=== PATIENT | male | born 1935 | race Caucasian/White ===

== ENCOUNTER 2023-09-12 13:34 | Emergency (ER) | payer OTHER, SELFPAY ==
[2023-09-12 13:38] VITALS: BP 160/83; PULSE 86; RESP 18; TEMP 36.5; O2SAT 97; BMI 21.0
[2023-09-12] MEDS: KETOROLAC TROMETHAMINE 30 MG/ML VIAL 15 MG IM (14:54)
[2023-09-12 15:00] VITALS: BP 140/80; PULSE 64; RESP 16; O2SAT 95
--- NOTE | 2023-09-12 15:11 | ED_ITS ---
HPI - General Adult General Chief complaint: Extremity Injury, Upper Stated complaint: UPPER EXTREMITY PAIN/ SWELLING Time Seen by Provider: 09/12/23 14:43 Source: patient Mode of arrival: walk-in Limitations: no limitations History of Present Illness HPI narrative: Is coming to the ER with a right elbow and wrist pain that started after he had a preceding left big toe pain as well as the left knee pain that resolved, the patient mentioned that over the last few days it he has been having those joint pain that goes away by themselves but today had some more swelling in the right wrist and right elbow and he came over for evaluation. The patient mentioned that he had no fall or trauma. Related Data Previous Rx's Medication Instructions Recorded acetaminophen 650 mg 650 mg PO Q8H PRN pain #20 tabs 09/12/23 tablet,extended release (Tylenol Arthritis Pain) prednisone 20 mg tablet 40 mg (2 x 20 mg) PO DAILY 4 days 09/12/23 #8 tabs Allergies Allergy/AdvReac Type Severity Reaction Status Date / Time No Known Drug Allergies Allergy Verified 09/12/23 13:38 Review of Systems ROS Status of ROS 10 or more systems reviewed and unremark able except as noted in history and below Exam Narrative Exam Narrative: Nurses notes and vital signs reviewed and patient is not hypoxic. General: Well-appearing and in no apparent distress. Skin: Warm, dry, no pallor noted. No rash. Head: Normocephalic, atraumatic. Neck: Supple, non-tender. Eye: Pupils are equal, round and EOMI. No scleral icterus. Ears, Nose, Mouth, and Throat: TM are clear, no nasal mucosal hypertrophy. Oral mucosa is moist, no posterior oropharynx erythema, uvula is mid-line Cardiovascular: Regular Rate and Rhythm without murmur, gallop or rub. Respiratory: No accessory muscle use or respiratory distress. Lungs are clear to auscultation, no wheezing, rales or rhonchi Chest Wall: no tenderness Back: No midline thoracic or lumbar vertebral tenderness. No CVA tenderness Musculoskeletal: The patient have mild swelling of the right wrist as well as hand no hotness, the patient also have a no edema of the left elbow or the left knee as well as the left foot. Mild effusion of the right wrist. Limited movement of the right elbow due to pain no redness no hotness no signs of infection. No vascular injury detected GI: Abdomen is soft, non-distended. Normal bowel sounds. No masses appreciated. No tenderness to palpation. No rebound, guarding, or rigidity noted. Neurological: A&O x4. No cranial nerve dysfunction observed. No truncal ataxia. Moves all extremities. Sensation intact. Psychiatric: Cooperative and interactive. Normal mood and affect. Constitutional Vital Signs, click to edit/add: Last Vital Signs Temp 97.7 F 09/12/23 13:38 Pulse 86 09/12/23 13:38 Resp 18 09/12/23 13:38 BP 160/83 H 09/12/23 13:38 Pulse Ox 97 09/12/23 13:38 O2 Del Method Room Air 09/12/23 13:38 Course Vital Signs Vital signs: Vital Signs Temperature 97.7 F 09/12/23 13:38 Pulse Rate 86 09/12/23 13:38 Respiratory Rate 18 09/12/23 13:38 Blood Pressure 160/83 H 09/12/23 13:38 Pulse Oximetry 97 09/12/23 13:38 Oxygen Delivery Method Room Air 09/12/23 13:38 Temperature 97.7 F 09/12/23 13:38 Pulse Rate 86 09/12/23 13:38 Respiratory Rate 18 09/12/23 13:38 Blood Pressure 160/83 H 09/12/23 13:38 Pulse Oximetry 97 09/12/23 13:38 Oxygen Delivery Method Room Air 09/12/23 13:38 Medical Decision Making [facility] Narrative Medical decision making narrative: The patient presenting with a possible gout arthritis right now he was treated with 5 days course of prednisone as well as Tylenol The patient is to follow up with primary care physician in next 2-3 days or to return to the emergency department should any of the signs or symptoms worsen or new symptoms develop. The patient agrees with the following Diagnosis and Treatment plan and the patient will be discharged home. Discharge Plan Discharge Chief Complaint: Extremity Injury, Upper Clinical Impression: Arthritis Gout attack Qualifiers: Gout site: elbow Gout etiology: unspecified cause Laterality: right Qualified Code(s): M10.9 - Gout, unspecified Patient Disposition: Home, Self-Care Time of Disposition Decision: 14:51 Condition: Good Prescriptions / Home Meds: New acetaminophen [Tylenol Arthritis Pain] 650 mg tablet extended release 650 mg PO Q8H PRN (Reason: pain) Qty: 20 0RF prednisone 20 mg tablet 40 mg PO DAILY 4 Days Qty: 8 0RF Instructions: Gout (ED) Stand Alone Forms: Portal Instructions Referrals: Physician,Non-Staff, MD [Primary Care Provider] - 1 week Juan Jose Monte MD [Physician] - 1 week
== END 2023-09-12 15:14 | disposition home or self-care (01) ==
PROVIDERS: Emergency Provider Emergency Medicine
DX: M10.9 Gout, unspecified (principal); M19.90 Unspecified osteoarthritis, unspecified site
CPT/HCPCS: 96372; 99284; J1885